=== PATIENT | female | born 1960 | race Caucasian/White ===

== ENCOUNTER → 2016-06-27 | Outpatient (CLI) | payer OTHER ==
--- NOTE | 2016-06-27 08:29 | US ---
EXAMINATION TYPE: US abdomen complete DATE OF EXAM: 06/27/2016 7:35 AM COMPARISON: NONE CLINICAL HISTORY: 55-year-old female R10.84 Generalized ABD Pain. TECHNIQUE: Multiple sonographic images of the abdomen were obtained. FINDINGS: Liver Length: 18.5 cm Gallbladder Wall: 0.3 cm CBD: 0.5 cm Spleen: 9.1 cm Right Kidney: 9.8 x 4.1 x 4.1 cm Left Kidney: 10.1 x 5.8 x 4.6 cm Pancreas: Within normal limits. Liver: Mildly enlarged. Slight heterogeneous echotexture could be on a technical basis or could repre sent underlying nonspecific hepatocellular disease. Gallbladder: Borderline distended. No wall thickening. There is a 2.2 cm mobile shadowing calculus w ithin. Evidence for sonographic Mcclain's sign: Yes CBD: Within normal limits Spleen: Within normal limits Right Kidney: no evidence of hydronephrosis Left Kidney: no evidence of hydronephrosis, limited evaluation due to overlying bowel Upper IVC: wnl Abd Aorta: Distal abdominal aorta is borderline ectatic at 2.5 cm transverse dimension. Additional scanning at the midabdomen, site of patient's lump. There is a nodular area of soft tissue that is suspected to extend through a tiny 5 mm defect of the anterior abdominal wall. The area of n odularity measures 1.2 cm. IMPRESSION: 1. Mild hepatomegaly. Slight heterogeneous appearance of the liver could be on a technical basis or c ould represent nonspecific hepatocellular disease. 2. Borderline gallbladder hydrops and cholelithiasis. Gallbladder distention could relate to fasting state. While sonographic Mcclain's sign is reported positive, the imaging features are equivocal for a cute cholecystitis as there is no abnormal wall thickening or pericholecystic fluid. Further clinical correlation recommended. If further imaging evaluation is desired, HIDA scan can be performed. 3. Suspect a tiny 1.2 cm fat-containing hernia through a 5 mm defect along the anterior mid abdominal wall at the site of patient's lump.
== END | disposition home or self-care (01) ==
LOC: RADUSWWP 06:57
PROVIDERS: ATTEND Internal Medicine
DX: K80.00 Calculus of gallbladder with acute cholecystitis without obstruction (principal); K82.1 Hydrops of gallbladder; R16.0 Hepatomegaly, not elsewhere classified; K82.8 Other specified diseases of gallbladder
CPT/HCPCS: 76700

== ENCOUNTER 2016-09-23 08:53 | Day surgery (SDC) | payer OTHER ==
[2016-09-21 11:05] VITALS: BMI 30.9
[~2016-09-23 08:53] MED LIST: LACTATED RINGERS 1,000 ML IV SCH; LIDOCAINE 1% 20 ML VIAL (10MG/ML) FOR IV START INTRADERMA PRN
[2016-09-23 10:31] VITALS: RESP 16; TEMP 98
[2016-09-23] MEDS ORDERED: LIDOCAINE 1% INJ 10MG/ML (20 ML MDV) ONE (11:10)
[2016-09-23] MEDS ORDERED: PROPOFOL 10 MG/ML 20 ML VIAL IV ONE (11:10)
--- NOTE | 2016-09-23 11:19 | P.PCN ---
Date of Procedure: 09/23/16 Preoperative Diagnosis: Postoperative Diagnosis: Procedure(s) Performed: BRIEF HISTORY: Patient is a 56-year-old, pleasant, white female, scheduled for an upper endoscopy with a CBD stent removal today. She developed post- laparoscopic cholecystectomy bile leak in July 2016 for which she underwent an ERCP with CBD stent placement.. PROCEDURE PERFORMED: Esophagogastroduodenoscopy with CBD stent removal. PREOPERATIVE DIAGNOSIS: History of bile leak status post ERCP with CBD stent placement in July 2016. IV sedation per anesthesia. PROCEDURE: After informed consent was obtained, the patient was brought into the endoscopy unit. IV sedation was administered by Anesthesia under continuous monitoring. Initially the Olympus GIF-140 video endoscope was inserted into the mouth. Esophagus intubated without any difficulty. It was gradually advanced into the stomach and duodenum and carefully examined. The bulb and the second part of the duodenum appeared normal. The scope at this time was withdrawn to the stomach, adequately insufflated with air, and upon careful examination, mucosa of the antrum, body, cardia and the fundus appeared normal. The scope was then withdrawn into the esophagus. Mall hiatal hernia noted. The GE junction was located at 39 cm from the incisors. There were 2 superficial erosions at the GE junction consistent with LA grade B reflux esophagitis. The rest of the esophagus appeared normal. At this time the scope was advanced into the duodenum and using the snare the CBD stent was removed without any difficulty and withdrawn along with the scope out of the mouth and the patient tolerated the procedure well. IMPRESSION: 1. CBD stent removal as described above. 2. Small hiatal hernia and LA grade B reflux esophagitis. RECOMMENDATIONS: The findings of this examination were discussed with the patient as well as a family. She isn't was advised to use [id number] H2 blockers as needed for GERD symptoms. Implants: Indications for Procedure: Operative Findings: Description of Procedure:
[2016-09-23 11:38] VITALS: PULSE 70
[2016-09-23 11:54] VITALS: BP 114/76
== END 2016-09-23 11:55 | disposition home or self-care (01) ==
LOC: ORWHC2ENDO 08:53
PROVIDERS: ATTEND Internal Medicine Gastroenterology
DX: Z45.89 Encounter for adjustment and management of other implanted devices (principal); K44.9 Diaphragmatic hernia without obstruction or gangrene; K21.0 Gastro-esophageal reflux disease with esophagitis; I10 Essential (primary) hypertension; J44.9 Chronic obstructive pulmonary disease, unspecified; Z86.718 Personal history of other venous thrombosis and embolism; Z79.899 Other long term (current) drug therapy; Z90.710 Acquired absence of both cervix and uterus
CPT/HCPCS: 43247; J2001; J2704; 44799

== ENCOUNTER 2018-02-25 00:39 | Inpatient (IN) | payer OTHER ==
[2018-02-25] MEDS ORDERED: methylPREDNISolone SOD SUCCI 125 MG/2 ML VIAL IV STA (00:58)
[2018-02-25] MEDS ORDERED: SODIUM CHLORIDE 0.9% 500 ML 500 ML IV STA (00:58)
[2018-02-25] MEDS ORDERED: IPRATROPIUM 0.5 MG/2.5 ML NEBU INHALATION STA (00:58)
[2018-02-25] MEDS ORDERED: ALBUTEROL NEBULIZED 2.5 MG/3 ML INHALATION STA (00:58)
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
[2018-02-25 01:42] LABS: Basophils % (A) 1 %; Eosinophils # (A) 0.1 k/uL (0-0.7); Eosinophils % (A) 2 %; HCT 44.9 % (34.0-46.0); HGB 14.1 gm/dL (11.4-16.0); Lymphocytes # (A) 0.6 k/uL (1.0-4.8); Lymphocytes % (A) 10 %; MCH 31.3 pg (25.0-35.0); MCHC 31.4 g/dL (31.0-37.0); MCV 99.5 fL (80.0-100.0); Macrocytosis Slight; Mean Platelet Volume 7.1; Monocytes # (A) 0.2 k/uL (0-1.0); Monocytes % (A) 4 %; Neutrophils # (A) 5.1 k/uL (1.3-7.7); Neutrophils % (A) 83 %; Platelet Count 242 k/uL (150-450); RBC 4.51 m/uL (3.80-5.40); RDW 14.2 % (11.5-15.5); WBC 6.2 k/uL (3.8-10.6)
[2018-02-25 01:58] LABS: ALT 31 U/L (9-52); AST 26 U/L (14-36); Albumin 4.3 g/dL (3.5-5.0); Alkaline Phosphatase 50 U/L (38-126); Anion Gap 7 mmol/L; Blood Urea Nitrogen 9 mg/dL (7-17); Calcium 9.6 mg/dL (8.4-10.2); Carbon Dioxide 27 mmol/L (22-30); Chloride 102 mmol/L (98-107); Glucose 116 mg/dL (74-99); Magnesium 1.9 mg/dL (1.6-2.3); Sodium 136 mmol/L (137-145); Total Bilirubin 0.5 mg/dL (0.2-1.3); Total Protein 7.3 g/dL (6.3-8.2)
[2018-02-25 02:02] LABS: D-Dimer 0.36 mg/L FEU (<0.60); INR 0.9 (<1.2); Partial Thromboplastin Time 23.1 sec (22.0-30.0); Prothrombin Time 9.5 sec (9.0-12.0)
[2018-02-25 02:08] LABS: Potassium 4.7 mmol/L (3.5-5.1)
[2018-02-25 02:16] LABS: Creatine Kinase MB 2.2 ng/mL (0.0-2.4)
[2018-02-25 02:17] LABS: Appearance,Urine Clear (Clear); Bilirubin,Urine Negative (Negative); Blood,Urine Small (Negative); Color,Urine Light Yellow; Glucose,Urine (UA) Negative (Negative); Ketones,Urine Negative (Negative); Leukocyte Esterase,Urine Negative (Negative); Nitrite,Urine Negative (Negative); PH, Urine 6.5 (5.0-8.0); Protein,Urine Negative (Negative); RBC,Urine <1 /hpf (0-5); Specific Gravity,Urine 1.002 (1.001-1.035); Urobilinogen,Urine <2.0 mg/dL (<2.0)
[2018-02-25 02:22] LABS: Troponin I 0.294 ng/mL (0.000-0.034)
[2018-02-25] MEDS ORDERED: ASPIRIN 325 MG TAB PO STA (02:24)
[2018-02-25] MEDS ORDERED: HEPARIN SODIUM,PORCINE 5,000 UNIT/ML 1 ML VIAL IV PRN (02:24)
[2018-02-25] MEDS ORDERED: HEPARIN SODIUM,PORCINE 5,000 UNIT/ML 1 ML VIAL IV ONE (02:24)
[2018-02-25] MEDS ORDERED: SODIUM CHLORIDE 0.9% 500 ML 500 ML IV ONE (02:27)
--- NOTE | 2018-02-25 02:30 | XR ---
EXAMINATION TYPE: XR chest 2V DATE OF EXAM: 02/25/2018 COMPARISON: 06/22/2012 HISTORY: COPD. Difficulty breathing TECHNIQUE: Frontal and lateral views of the chest are obtained. FINDINGS: Heart and mediastinum are normal. Lungs are clear of consolidation. There is no pleural ef fusion. Bony thorax is intact. IMPRESSION: Normal chest. No change.
[2018-02-25] MEDS ORDERED: NITROGLYCERIN SL TABS 0.4 MG TAB SUBLINGUAL PRN (02:50)
[2018-02-25] MEDS: HEPARIN SOD,PORK IN 0.45% NACL 25,000 UNIT in 0.45% NACL 1 500ML.BAG IV SCH (03:01)
[2018-02-25] MEDS: SODIUM CHLORIDE 0.9% 1,000 ML IV SCH ×2 (06:18→13:37)
[2018-02-25] MEDS: IPRATROPIUM-ALBUTEROL 3 ML NEB INHALATION PRN ×3 (07:27→20:22)
[2018-02-25] MEDS ORDERED: HEPARIN SODIUM,PORCINE 5,000 UNIT/ML 1 ML VIAL IV STA (08:56)
[2018-02-25] MEDS: methylPREDNISolone SOD SUCCI 125 MG/2 ML VIAL IV SCH ×3 (08:58→23:16)
[2018-02-25 09:17] LABS: Creatine Kinase MB 4.1 ng/mL (0.0-2.4)
[2018-02-25 09:28] LABS: Troponin I 0.589 ng/mL (0.000-0.034)
[2018-02-25 13:33] VITALS: BMI 28.6
[2018-02-25] MEDS: ATORVASTATIN 80 MG TAB PO SCH (13:47)
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
[2018-02-25 15:37] LABS: Creatine Kinase MB 4.3 ng/mL (0.0-2.4)
[2018-02-25 15:39] LABS: Troponin I 0.418 ng/mL (0.000-0.034)
[2018-02-25] MEDS: NITROGLYCERIN OINT 1 INCH/GM PACKET TOPICAL SCH ×2 (16:30→23:15)
--- NOTE | 2018-02-25 17:53 | CONS ---
CONSULTATION This is a 57-year-old lady with a history of hypertension, smoking, who is also status post cholecystectomy. She smokes at least about half to 1 pack daily. Drinks alcohol about 4-5 beers every week. This lady has been having increasing shortness of breath and wheezing and came into the hospital. Also complained of some pounding in the chest and symptoms of chest tightness and pressure as well. After arrival, her initial troponin was mildly elevated at 0.2 and went up to 0.5. Her symptoms have resolved. She is resting comfortably after receiving some steroids and breathing treatment, she is actually feeling well. At the time of my evaluation, she is more comfortable, but earlier she had pounding in the chest and tightness pressure as well as shortness of breath. PAST MEDICAL HISTORY: 1. Hypertension. 2. Smoking and chronic obstructive pulmonary disease. 3. History of a gallbladder surgery in the past. MEDICATIONS: She takes lisinopril, amlodipine, and breathing treatments. PHYSICAL EXAMINATION: On examination, blood pressure is 118/70, pulse rate is about 90 per minute and regular. HEENT unremarkable. Fundus was not examined by me. Neck is supple. There is no JVD. I do not hear a carotid bruit. Heart exam reveals S1, S2 heard normally. No significant rub, murmur or gallop. Lungs reveal scattered expiratory rhonchi. Abdomen is soft, nontender. Lower extremity with normal pulses. No edema. Central nervous system is normal. EKG revealed a sinus tachycardia. No acute changes. IMPRESSION: 1. Exacerbation of chronic obstructive pulmonary disease. 2. Probable non ST elevation Myocardial infarction which could be oxygen mismatch but primary coronary obstruction cannot be totally excluded in a patient with significant risk factors. 3. History of hypertension. RECOMMENDATIONS: I am recommending that we will continue the heparin drip. We will reduce the aspirin to 81 mg daily. Add nitro paste and a beta patel in the form of metoprolol tartrate 25 mg b.i.d., perform echocardiogram tomorrow. We will do a troponin at 6:00 pm and 6:00 am today. I advised the patient that she will benefit from a coronary angiography, especially if the troponin shows an upward trend. Rationale, risks, benefits, options were explained. She understands all details and wishes to proceed with the procedure. I will see her in the morning and then make a final definitive decision. Thank you very much for the consult. ELO / CASEY: [id number] /
[2018-02-25] MEDS: METOPROLOL TARTRATE 25 MG TAB PO SCH (20:38)
[2018-02-26] MEDS: HEPARIN SOD,PORK IN 0.45% NACL 25,000 UNIT in 0.45% NACL 1 500ML.BAG IV SCH ×2 (03:09→21:02)
[2018-02-26] MEDS: ACETAMINOPHEN TAB 325 MG TAB PO PRN (03:09)
[2018-02-26] MEDS: SODIUM CHLORIDE 0.9% 1,000 ML IV SCH ×2 (05:16→19:01)
[2018-02-26] MEDS: NITROGLYCERIN OINT 1 INCH/GM PACKET TOPICAL SCH ×3 (07:56→23:50)
[2018-02-26] MEDS: amLODIPine 10 MG TAB PO SCH (07:58)
[2018-02-26] MEDS: ATORVASTATIN 80 MG TAB PO SCH (07:58)
[2018-02-26] MEDS: methylPREDNISolone SOD SUCCI 125 MG/2 ML VIAL IV SCH ×3 (07:58→23:51)
[2018-02-26] MEDS: LISINOPRIL 20 MG TAB PO SCH (07:58)
[2018-02-26] MEDS: METOPROLOL TARTRATE 25 MG TAB PO SCH ×2 (07:58→20:44)
[2018-02-26] MEDS: ASPIRIN 81 MG PO SCH (07:58)
[2018-02-26] MEDS: IPRATROPIUM-ALBUTEROL 3 ML NEB INHALATION PRN ×4 (08:09→19:10)
[2018-02-26 08:30] LABS: Basophils % (A) 0 %; Eosinophils # (A) 0.1 k/uL (0-0.7); Eosinophils % (A) 1 %; HCT 39.2 % (34.0-46.0); HGB 12.8 gm/dL (11.4-16.0); Lymphocytes # (A) 0.6 k/uL (1.0-4.8); Lymphocytes % (A) 7 %; MCH 31.6 pg (25.0-35.0); MCHC 32.5 g/dL (31.0-37.0); MCV 97.1 fL (80.0-100.0); Mean Platelet Volume 8.5; Monocytes # (A) 0.3 k/uL (0-1.0); Monocytes % (A) 3 %; Neutrophils # (A) 7.8 k/uL (1.3-7.7); Neutrophils % (A) 90 %; Platelet Count 224 k/uL (150-450); RBC 4.04 m/uL (3.80-5.40); RDW 14.2 % (11.5-15.5); WBC 8.7 k/uL (3.8-10.6)
[2018-02-26 08:46] LABS: Anion Gap 8 mmol/L; Blood Urea Nitrogen 17 mg/dL (7-17); Calcium 9.8 mg/dL (8.4-10.2); Carbon Dioxide 21 mmol/L (22-30); Chloride 110 mmol/L (98-107); Cholesterol 145 mg/dL (<200); Glucose 132 mg/dL (74-99); HDL Cholesterol 39 mg/dL (40-60); LDL Cholesterol,Calculated 89 mg/dL (0-99); Potassium 4.5 mmol/L (3.5-5.1); Sodium 139 mmol/L (137-145); Triglycerides 83 mg/dL (<150)
[2018-02-26] MEDS ORDERED: ASPIRIN 325 MG TAB PO SCH (09:00)
--- NOTE | 2018-02-26 15:04 | P.PN ---
Subjective Progress Note Date: 02/26/18 Principal diagnosis: COPD exacerbation and NSTEMI Ms. Mclaughlin is a 57-year-old female with a past medical history of COPD, hypertension coming in with a chief complaint of worsening cough and dyspnea. The patient was also complaining of chest pain in the middle of the chest chest was radiating to both her shoulder blades. She states that whenever her cough is worse, she tends to have this chest pain that radiates to her shoulders. Patient also complains of cough, productive in nature, greenish to yellowish in color. Patient has extensive smoking history from the age of 13 almost half to 1 pack per day. Patient denies having any sick contacts. Patient denies having any diaphoresis nausea or vomiting. Patient denies having any lower extremity swelling. Patient states that she felt like a fish out of the water. Patient denies having any fevers chills or rigors. In the ER patient had blood work done which showed elevation in troponins and a chest x-ray that was showing emphysematous changes. On 02/26/18 - patient is sitting up in the bed with his to be no acute distress. No acute overnight events reported by nursing staff. Patient states that she still has been wheezing and having difficulty in breathing. Patient denies having any fevers chills or rigors. No chest pain or palpitations.No nausea vomiting or diarrhea. No dysuria or hematuria. Active Medications Acetaminophen (Tylenol Tab) 650 mg PO Q6HR PRN PRN Reason: Fever and/ or Pain Last Admin: 02/26/18 03:09 Dose: 650 mg Albuterol/Ipratropium (Duoneb 0.5 Mg-3 Mg/3 Ml Soln) 3 ml INHALATION RT-QID PRN PRN Reason: Shortness Of Breath Or Wheezing Last Admin: 02/26/18 11:52 Dose: 3 ml Amlodipine Besylate (Norvasc) 10 mg PO DAILY [facility] Last Admin: 02/26/18 07:58 Dose: 10 mg Aspirin (Aspirin) 81 mg PO DAILY [facility] Last Admin: 02/26/18 07:58 Dose: 81 mg Atorvastatin Calcium (Lipitor) 80 mg PO DAILY [facility] Last Admin: 02/26/18 07:58 Dose: 80 mg Heparin Sodium (Porcine) (Heparin) 0 unit IV PER PROTOCOL PRN; Protocol PRN Reason: Low PTT Heparin Sodium/Sodium Chloride (25,000 unit/ Sodium Chloride) 500 mls @ 18.5 mls/hr IV .Q24H [facility]; Protocol Last Titration: 02/26/18 11:17 Dose: 17 units/kg/hr, 26.21 mls/hr Sodium Chloride (Saline 0.9%) 1,000 mls @ 75 mls/hr IV .[id number] [facility] Last Admin: 02/26/18 05:16 Dose: Not Given Lisinopril (Zestril) 20 mg PO DAILY [facility] Last Admin: 02/26/18 07:58 Dose: 20 mg Methylprednisolone Sodium Succinate (Solu-Medrol) 60 mg IV Q8HR [facility] Last Admin: 02/26/18 07:58 Dose: 60 mg Metoprolol Tartrate (Lopressor) 25 mg PO BID [facility] Last Admin: 02/26/18 07:58 Dose: 25 mg Nitroglycerin (Nitrostat) 0.4 mg SUBLINGUAL Q5M PRN PRN Reason: Chest Pain Nitroglycerin (Nitro-Bid Oint) 0.5 inch TOPICAL Q8HR [facility] Last Admin: 02/26/18 07:56 Dose: Not Given Objective - Vital Signs Vital signs: Vital Signs Temp 98 F 02/26/18 11:15 Pulse 70 02/26/18 12:04 Resp 20 02/26/18 12:00 BP 109/61 02/26/18 11:15 Pulse Ox 93 L 02/26/18 11:15 Intake & Output 02/25/18 02/26/18 02/26/18 18:59 06:59 18:59 Intake Total 419.683 6842.925 188.124 Balance 179.532 1005.925 188.124 Weight 74.2 kg Intake: Intake, IV Titration 081.958 1564.925 188.124 Amount Heparin Sod,Pork in 0.45% 110.075 389.925 188.124 NaCl 25,000 unit In 0.45 % NaCl 1 500ml.bag @ 12 UNITS/KG/HR 18.5 mls/hr IV .Q24H [facility] Rx#: [id number] Sodium Chloride 0.9% 1, 1050 000 ml @ 75 mls/hr IV . [id number] [facility] Rx#:[id number] Oral 240 240 Other: Voiding Method Toilet Toilet Diaper Diaper # Voids 5 - Exam GEN. APPEARANCE: alert, in no apparent distress HEAD EXAM: atraumatic, normocephalic, normal inspection EYE EXAM: no pallor. No icterus. NECK EXAM: no JVD. No thyromegaly. No carotid artery bruit. RESPIRATORY EXAM: diminished breath sounds in all lung lara. Bilateral wheezing. CARDIOVASCULAR EXAM: S1 and S2 heard GI/ABDOMINAL EXAM: Soft nontender. Bowel sounds positive. EXTREMITIES EXAM: no peripheral edema. NEUROLOGICAL EXAM: alert, oriented X3, no focal neurological deficits. PSYCHIATRIC EXAM: normal affect, normal mood SKIN EXAM: warm, dry, intact, normal color. Absent: rash - Labs CBC & Chem 7: 02/26/18 07:09 02/26/18 07:09 Labs: Abnormal Lab Results - Last 24 Hours (Table) 02/25/18 02/25/18 02/25/18 Range/Units 14:42 14:42 20:00 Neutrophils # (1.3-7.7) k/uL Lymphocytes # (1.0-4.8) k/uL APTT 53.6 H (22.0-30.0) sec Chloride (98-107) mmol/L Carbon Dioxide (22-30) mmol/L Glucose (74-99) mg/dL CK-MB (CK-2) 4.3 H (0.0-2.4) ng/mL Troponin I 0.418 H* 0.363 H* (0.000-0.034) ng/mL HDL Cholesterol (40-60) mg/dL 02/26/18 02/26/18 02/26/18 Range/Units 07:09 07:09 07:09 Neutrophils # 7.8 H (1.3-7.7) k/uL Lymphocytes # 0.6 L (1.0-4.8) k/uL APTT 44.5 H (22.0-30.0) sec Chloride 110 H (98-107) mmol/L Carbon Dioxide 21 L (22-30) mmol/L Glucose 132 H (74-99) mg/dL CK-MB (CK-2) (0.0-2.4) ng/mL Troponin I (0.000-0.034) ng/mL HDL Cholesterol 39 L (40-60) mg/dL 12/10/18 Range/Units 10:50 Neutrophils # (1.3-7.7) k/uL Lymphocytes # (1.0-4.8) k/uL APTT (22.0-30.0) sec Chloride (98-107) mmol/L Carbon Dioxide (22-30) mmol/L Glucose (74-99) mg/dL CK-MB (CK-2) (0.0-2.4) ng/mL Troponin I 0.226 H* (0.000-0.034) ng/mL HDL Cholesterol (40-60) mg/dL Microbiology - Last 24 Hours (Table) 02/25/18 01:19 Blood Culture - Preliminary Blood No Growth after 24 hours Assessment and Plan Assessment: ASSESSMENT Acute exacerbation of COPD Non-ST elevation [place] Essential hypertension Nicotine dependence Plan: Patient is still actively wheezing. We'll continue with systemic steroids and breathing treatments. Cardiology evaluated the patient and would like her breathing to be optimized before taking her for cardiac cath. We'll continue with heparin drip for now. Continue with serial troponins and EKGs. Further recommendations to follow depending on the progress of the patient.
--- NOTE | 2018-02-26 16:15 | PN ---
PROGRESS NOTE Mrs. Manuela Mclaughlin was admitted with exacerbation of COPD. She has history of smoking. Her troponin profile has shown improvement. Although there is abnormality of the troponin elevation, I am not recommending immediate cardiac cath. Instead I will seek a pulmonary evaluation and also assess her LV function by echocardiogram and based on this I will make further recommendations. Her vitals are stable. Her breathing is modestly improved. S1-S2 heard normally. Bilateral scattered rhonchi are audible. Abdomen and lower extremity exam is unchanged. I will seek a pulmonary consult and continue current medical regimen and obtain echocardiogram. We will switch her from IV heparin to subcu heparin tomorrow. MMODL / IJN: [id number] /
--- NOTE | 2018-02-27 06:25 | ECHOF ---
Referral Reason:CP MEASUREMENTS -------- HEIGHT: 160.0 cm WEIGHT: 74.4 kg BP: 108/60 RVIDd: 3.4 cm (< 3.3) IVSd: 1.0 cm (0.6 - 1.1) LVIDd: 4.2 cm (3.9 - 5.3) LVPWd: 0.9 cm (0.6 - 1.1) IVSs: 1.5 cm LVIDs: 2.5 cm LVPWs: 1.3 cm LA Diam: 3.5 cm (2.7 - 3.8) Ao Diam: 3.0 cm (2.0 - 3.7) AV Cusp: 1.9 cm (1.5 - 2.6) LA Diam: 3.2 cm (2.7 - 3.8) MV EXCURSION: 26.030 mm (> 18.000) MV EF SLOPE: 194 mm/s (70 - 150) EPSS: 0.6 cm MV E Joaquin: 0.82 m/s MV DecT: 215 ms MV A Joaquin: 0.95 m/s MV E/A Ratio: 0.86 AR PHT: 474 ms RAP: 5.00 mmHg RVSP: 22.27 mmHg FINDINGS -------- Sinus rhythm. This was a technically adequate study. LV size, wall thickness and systolic function are normal, with an EF greater than 55%. The left batsheva tricular size is normal. The right ventricle is normal in size. The left atrial size is normal. The right atrial size is normal. There is mild aortic valve sclerosis. There is mild aortic regurgitation. Mild mitral annular calcification present. Mild mitral regurgitation is present. Mild tricuspid regurgitation present. There is no evidence of pulmonary hypertension. The right v entricular systolic pressure, as measured by Doppler, is 22.27mmHg. Trace/mild (physiologic) pulmonic regurgitation. The aortic root size is normal. There is no pericardial effusion. CONCLUSIONS -------- 1. Sinus rhythm. 2. LV size, wall thickness and systolic function are normal, with an EF greater than 55%. 3. The left ventricular size is normal. 4. The left atrial size is normal. 5. There is mild aortic valve sclerosis. 6. There is mild aortic regurgitation. 7. Mild mitral annular calcification present. 8. Mild mitral regurgitation is present. 9. Mild tricuspid regurgitation present. 10. There is no evidence of pulmonary hypertension. 11. Trace/mild (physiologic) pulmonic regurgitation. 12. The aortic root size is normal. 13. There is no pericardial effusion. ASSOCIATE: Ginette Campbell RDCS
[2018-02-27 06:42] LABS: Basophils % (A) 0 %; Eosinophils # (A) 0.1 k/uL (0-0.7); Eosinophils % (A) 1 %; HCT 37.6 % (34.0-46.0); HGB 12.1 gm/dL (11.4-16.0); Lymphocytes # (A) 0.7 k/uL (1.0-4.8); Lymphocytes % (A) 9 %; MCH 31.9 pg (25.0-35.0); MCHC 32.1 g/dL (31.0-37.0); MCV 99.3 fL (80.0-100.0); Macrocytosis Slight; Mean Platelet Volume 7.1; Monocytes # (A) 0.2 k/uL (0-1.0); Monocytes % (A) 2 %; Neutrophils # (A) 6.5 k/uL (1.3-7.7); Neutrophils % (A) 88 %; Platelet Count 236 k/uL (150-450); RBC 3.78 m/uL (3.80-5.40); RDW 14.4 % (11.5-15.5); WBC 7.5 k/uL (3.8-10.6)
[2018-02-27 06:53] LABS: Anion Gap 8 mmol/L; Blood Urea Nitrogen 21 mg/dL (7-17); Calcium 9.3 mg/dL (8.4-10.2); Carbon Dioxide 19 mmol/L (22-30); Chloride 111 mmol/L (98-107); Glucose 130 mg/dL (74-99); Sodium 138 mmol/L (137-145)
[2018-02-27 06:57] LABS: Potassium 4.4 mmol/L (3.5-5.1)
[2018-02-27] MEDS: methylPREDNISolone SOD SUCCI 125 MG/2 ML VIAL IV SCH ×3 (08:21→23:24)
[2018-02-27] MEDS: NITROGLYCERIN OINT 1 INCH/GM PACKET TOPICAL SCH (08:22)
[2018-02-27] MEDS: ACETAMINOPHEN TAB 325 MG TAB PO PRN ×2 (08:28→20:25)
[2018-02-27] MEDS: IPRATROPIUM-ALBUTEROL 3 ML NEB INHALATION PRN ×2 (08:29→11:47)
[2018-02-27] MEDS: LISINOPRIL 20 MG TAB PO SCH (09:33)
[2018-02-27] MEDS: ASPIRIN 81 MG PO SCH (09:33)
[2018-02-27] MEDS: METOPROLOL TARTRATE 25 MG TAB PO SCH ×2 (09:33→20:25)
[2018-02-27] MEDS: ATORVASTATIN 80 MG TAB PO SCH (09:33)
[2018-02-27] MEDS: amLODIPine 10 MG TAB PO SCH (09:33)
--- NOTE | 2018-02-27 13:10 | PN ---
PROGRESS NOTE Mrs. Mclaughlin is doing better today. Her troponin profile represents possible non- ST elevation [place] because of oxygen mismatch. Her breathing is still suboptimal. She has expiratory wheezing. I am awaiting pulmonary evaluation. I am going to switch her heparin from IV to subcu, increase activity. Vital signs are stable. S1, S2 heard normally. Lungs reveal bilateral scattered rhonchi. Abdomen and lower extremity exam unchanged. Plan is to treat her medically from a cardiac standpoint, but after discharge I will see her in the office and consider stress testing to assess her coronary status. Discussed my thoughts in detail with the patient. MMODL / IJN: [id number] /
[2018-02-27] MEDS ORDERED: IPRATROPIUM-ALBUTEROL 3 ML NEB INHALATION PRN (14:02)
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
[2018-02-27] MEDS ORDERED: HYDROcodone/APAP 5-325MG 1 EACH TAB PO STA (14:21)
[2018-02-27] MEDS: LEVOFLOXACIN 750 MG TAB PO SCH (15:17)
[2018-02-27] MEDS: IPRATROPIUM-ALBUTEROL 3 ML NEB INHALATION SCH ×2 (16:11→20:42)
[2018-02-27] MEDS: SODIUM CHLORIDE 0.9% 1,000 ML IV SCH (18:58)
[2018-02-27] MEDS: HEPARIN SODIUM,PORCINE 5,000 UNIT/ML 1 ML VIAL SQ SCH (20:25)
[2018-02-27] MEDS: SYMBICORT 160-4.5 MCG INHALER INHALATION SCH (20:44)
[2018-02-28] MEDS: IPRATROPIUM-ALBUTEROL 3 ML NEB INHALATION SCH ×4 (07:53→20:26)
[2018-02-28] MEDS: SYMBICORT 160-4.5 MCG INHALER INHALATION SCH ×2 (07:53→20:27)
[2018-02-28] MEDS: HEPARIN SODIUM,PORCINE 5,000 UNIT/ML 1 ML VIAL SQ SCH ×2 (09:29→20:00)
[2018-02-28] MEDS: methylPREDNISolone SOD SUCCI 125 MG/2 ML VIAL IV SCH ×3 (09:29→22:55)
[2018-02-28] MEDS: LISINOPRIL 20 MG TAB PO SCH (09:30)
[2018-02-28] MEDS: ASPIRIN 81 MG PO SCH (09:31)
[2018-02-28] MEDS: LEVOFLOXACIN 750 MG TAB PO SCH (09:31)
[2018-02-28] MEDS: METOPROLOL TARTRATE 25 MG TAB PO SCH ×2 (09:31→20:00)
[2018-02-28] MEDS: amLODIPine 10 MG TAB PO SCH (09:31)
[2018-02-28] MEDS: ATORVASTATIN 80 MG TAB PO SCH (09:31)
[2018-02-28 12:24] LABS: Glucose,Whole Blood 91 mg/dL (75-99)
--- NOTE | 2018-02-28 12:56 | CDI ---
Documentation Clarification Form Date: 02/28/2018 12:45:38 PM From: Blanquita Lozada CCS, CCDS Admit Date: 02/25/2018 2:52:00 AM Patient Name: Manuela Mclaughlin Visit Number: [id number] Discharge Date: ATTENTION: The Clinical Documentation Specialists (CDI) and [facility] Coding Staff appreciate your assistance in clarifying documentation. Please respond to the clarification below the line at the bottom and electronically sign. The CDI & [facility] Coding staff will review the response and follow-up if needed. Please note: Queries are made part of the Legal Health Record. If you have any questions, please contact the author of this message via ITS. Dr. Charles Gill: Per the 02/27 cardiology progress note: "Mrs. Mclaughlin is doing better today.Her troponin profile represents possible non-ST elevation [place] because of oxygen mismatch." Patient History/Risk Factors: COPD, Hypertension, DVT, Osteopenia. Current smoker. Clinical Indicators: Presented to ER with chest pain & difficulty in breathing. Troponin: 0.294^^, 0.589^^, 0.418^^, 0.363^^ EKG Results: R 96 nsr, nonspecific ST abnormality, abnormal EKG Treatment: Telemetry, Albuterol INH, Atrovent INH, IV Solumedrol, IV fluid bolus x2, IV Heparin (changed to subcu), Nitro sl. In order to capture the severity of condition and necessary documentation specificity, please clarify: Type of Infarction: NSTEMI Type I: primary coronary event Type II: Due to a supply & demand mismatch such as coronary spasm, coronary embolism, arrhythmia, anemia or hypotension Unable to determine Other, please specify (Last Revision: December 2016) Type II NSTEMI MTDD
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
[2018-02-28 17:12] LABS: Glucose,Whole Blood 112 mg/dL (75-99)
[2018-02-28] MEDS: ACETAMINOPHEN TAB 325 MG TAB PO PRN (20:00)
[2018-02-28 20:51] LABS: Glucose,Whole Blood 118 mg/dL (75-99)
--- NOTE | 2018-02-28 21:17 | PN ---
PROGRESS NOTE HISTORY: This lady has history of elevated troponins, which is probably a type 2 myocardial infarction. She is, however, resting comfortably without symptoms. Echo revealed good systolic function. Her breathing is easier. She has been seen by Pulmonology. The plan is to continue current medical regimen and her breath sounds have improved a lot. I have advised regarding smoking cessation. PHYSICAL EXAMINATION: Vital signs are stable. S1-S2 heard normally. Lungs reveal improved air entry. Abdomen and lower extremity exams unchanged. PLAN: Continue current medications and increase activity. Possible discharge. I will see her in the office in 3 weeks or so. MMODL / IJN: [id number] /
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
[2018-03-01 06:04] LABS: Glucose,Whole Blood 140 mg/dL (75-99)
[2018-03-01] MEDS: IPRATROPIUM-ALBUTEROL 3 ML NEB INHALATION SCH ×3 (08:26→16:22)
[2018-03-01] MEDS: SYMBICORT 160-4.5 MCG INHALER INHALATION SCH (08:26)
[2018-03-01 08:41] VITALS: RESP 17; TEMP 98
[2018-03-01] MEDS: methylPREDNISolone SOD SUCCI 125 MG/2 ML VIAL IV SCH ×2 (08:41→16:15)
[2018-03-01] MEDS: METOPROLOL TARTRATE 25 MG TAB PO SCH (08:42)
[2018-03-01] MEDS: ASPIRIN 81 MG PO SCH (08:42)
[2018-03-01] MEDS: ATORVASTATIN 80 MG TAB PO SCH (08:42)
[2018-03-01] MEDS: amLODIPine 10 MG TAB PO SCH (08:42)
[2018-03-01] MEDS: LEVOFLOXACIN 750 MG TAB PO SCH (08:42)
[2018-03-01] MEDS: LISINOPRIL 20 MG TAB PO SCH (08:42)
[2018-03-01] MEDS: HEPARIN SODIUM,PORCINE 5,000 UNIT/ML 1 ML VIAL SQ SCH (08:42)
[2018-03-01] MEDS: ACETAMINOPHEN TAB 325 MG TAB PO PRN ×2 (10:00→16:13)
[2018-03-01 11:55] VITALS: BP 115/65
[2018-03-01 11:57] LABS: Glucose,Whole Blood 107 mg/dL (75-99)
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
[2018-03-01 16:37] VITALS: PULSE 75
--- NOTE | 2018-03-01 18:44 | PN ---
PROGRESS NOTE Mrs. Mclaughlin is admitted to the hospital with exacerbation of bronchial asthma, acute bronchitis, and also had a mild troponin elevation. She is resting comfortably. Denies any chest pain. Her breathing is easier. Vital signs are stable. S1-S2 heard normally. Short systolic murmur noted. Lungs reveal improved air entry. She still has some scattered rhonchi but overall better. Plan is to continue her respiratory management, increase activity and upon discharge I will see her in a couple of weeks. She has been counseled regarding the need to quit smoking. MMODL / IJN: [id number] /
--- NOTE | 2018-03-01 22:57 | DS ---
DISCHARGE SUMMARY DATE OF SERVICE: 03/01/2018. FINAL DIAGNOSES: 1. Chronic obstructive pulmonary disease exacerbation. 2. Acute non ST elevation myocardial infarction. 3. Hypertension. 4. Nicotine dependence. 5. Depression. 6. History of bilateral pneumothorax. DISCHARGE CONDITION: The patient is being discharged in stable condition with guarded prognosis. She was cleared by Pulmonary as well as Cardiology. HISTORY OF PRESENT ILLNESS: This 57-year-old woman with a past medical history of multiple medical problems was admitted with COPD exacerbation as well as acute non-ST elevation myocardial infarction. Cardiology and Pulmonology saw the patient and recommended outpatient followup. The patient improved significantly. On exam vital signs are stable. Cardiovascular, S1 and S2. Abdomen is soft. Nervous system, no focal deficits. LABS: Troponins elevated up to 3.363. The patient will be discharged in stable condition with guarded prognosis. Total time taken is 35 minutes. DISCHARGE INSTRUCTIONS: 1. Diet is cardiac diet. 2. Activity is limited. FOLLOWUP: 1. Follow up with Dr. Dash in 2 to 3 days. 2. Follow up with Dr. Banks and Dr. Katelynn Gill as recommended. MEDICATIONS: 1. Norvasc 10 mg daily. 2. Zestril 20 mg daily. 3. Tylenol p.r.n. 4. Aspirin 81 mg. 5. Lipitor 80 mg daily. 6. Symbicort 2 puffs b.i.d. 7. DuoNeb q.i.d. and p.r.n. 8. Levaquin 750 p.o. daily for 3 more days. 9. Lopressor 25 mg p.o. b.i.d. 10.Nitrostat p.r.n. 11.Prednisone taper 40 mg daily for 3 days, 30 for 3 days, 20 for 3 days, 10 for 3 days. Please refer to Cardiology and Pulmonology notes for further information. MMODL / IJN: [id number] /
== END 2018-03-01 18:22 | disposition home or self-care (01) | DRG 190 ==
LOC: EC 00:39 → 3SCARD 02:52
PROVIDERS: ADMIT Hospitalist; ATTEND Hospitalist
DX: J44.1 Chronic obstructive pulmonary disease with (acute) exacerbation (principal); I21.A1 Myocardial infarction type 2; J44.0 Chronic obstructive pulmonary disease with (acute) lower respiratory infection; F17.210 Nicotine dependence, cigarettes, uncomplicated; F32.9 Major depressive disorder, single episode, unspecified; I10 Essential (primary) hypertension; J20.9 Acute bronchitis, unspecified; M85.80 Other specified disorders of bone density and structure, unspecified site; I08.1 Rheumatic disorders of both mitral and tricuspid valves; R32 Unspecified urinary incontinence; Z77.120 Contact with and (suspected) exposure to mold (toxic); Z79.899 Other long term (current) drug therapy; Z86.718 Personal history of other venous thrombosis and embolism; Z90.49 Acquired absence of other specified parts of digestive tract; Z90.710 Acquired absence of both cervix and uterus; Z91.048 Other nonmedicinal substance allergy status; Z87.01 Personal history of pneumonia (recurrent); Z80.9 Family history of malignant neoplasm, unspecified
CPT/HCPCS: 36415; 71046; 80048; 80053; 80061; 81001; 82550; 82553; 83605; 83735; 83880; 84484; 85025; 85379; 85610; 85730; 87040; 93005; 93306; 94640; 94760; 96365; 96366; 96375; 96376; 99291

== ENCOUNTER → 2020-07-23 | Outpatient (CLI) | payer OTHER ==
[2020-07-24 03:54] LABS: African American GFR (CKD) 93.5 (60.0-200.0); Anion Gap 8.1 mmol/L (4.00-12.00); Calcium 9.7 mg/dL (8.7-10.3); Carbon Dioxide 26.9 mmol/L (21.6-31.8); Non-African American GFR(CKD) 80.7 (60.0-200.0); Potassium 4.6 mmol/L (3.5-5.5)
== END | disposition home or self-care (01) ==
LOC: LABWHC1 11:21
PROVIDERS: ATTEND Internal Medicine Interventional Cardiology
DX: I11.0 Hypertensive heart disease with heart failure (principal); I50.9 Heart failure, unspecified
CPT/HCPCS: 36415; 80048

== ENCOUNTER → 2020-09-03 | Outpatient (CLI) | payer OTHER ==
--- NOTE | 2020-09-04 11:43 | MM ---
Reason for exam: screening (asymptomatic). Last mammogram was performed 6 years and 1 month ago. History: Patient is postmenopausal. Benign stereotactic core biopsy of the left breast, March 29, 2002. Core biopsy of the left breast. Took hormonal contraceptives for 3 years. Physical Findings: A clinical breast exam by your physician is recommended on an annual basis and results should be correlated with mammographic findings. MG Screening Mammo w CAD Bilateral CC and MLO view(s) were taken. Prior study comparison: July 22, 2014, left breast MG diagnostic mammo LT w CAD. February 12, 2014, bilateral MG work up mamm w CAD BILAT. Previous mammotome biopsy in the left breast. There is chronic nodularity in the left breast. No significant changes when compared with prior studies. ASSESSMENT: Benign, BI-RAD 2 RECOMMENDATION: Routine screening mammogram of both breasts in 1 year.
== END | disposition home or self-care (01) ==
LOC: RADMAMWWP 09:06
PROVIDERS: ATTEND Internal Medicine
DX: Z12.31 Encounter for screening mammogram for malignant neoplasm of breast (principal); Z78.0 Asymptomatic menopausal state
CPT/HCPCS: 77067

== ENCOUNTER 2022-08-19 08:53 | Emergency (ER) | payer OTHER ==
[2022-08-19 09:00] VITALS: TEMP 98
[2022-08-19] MEDS ORDERED: MORPHINE SULFATE 4 MG/ML SYRINGE IM STA ×2 (09:14→10:58)
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
--- NOTE | 2022-08-19 09:42 | XR ---
EXAMINATION TYPE: XR elbow limited LT, XR hand limited LT, XR wrist limited LT, XR forearm LT DATE OF EXAM: 08/19/2022 CLINICAL HISTORY: Fall injury with pain. TECHNIQUE: Two views of the left elbow, forearm, wrist, and hand are obtained. COMPARISON: None. FINDINGS: No acute fracture or dislocation in the left elbow. No abnormal fat pad signs are seen. Ov erlying soft tissue is unremarkable. There is acute comminuted displaced intra-articular fracture through the distal radial meta-epiphysis . Distal fracture fragment is impacted along with radially and volarly displaced. There is additional acute avulsion type fracture from the ulnar styloid with 5 mm fracture fragment. Focal mild to moder ate soft tissue swelling along the ulnar dorsal aspect of the distal ulna is seen. Incidental moderate narrowing at the base of first metacarpal and mild to moderate triscaphe joint sp christopher loss. No additional acute fracture or dislocation in the left wrist or hand. IMPRESSION: There is acute avulsion type fracture from the ulnar styloid and acute comminuted displa van intra-articular fracture through the distal radial meta-epiphysis.
[2022-08-19] MEDS ORDERED: LIDOCAINE 2% INJ 20 MG/ML (20 ML MDV) SQ STA (09:51)
[2022-08-19] MEDS ORDERED: ACET/COD 300 MG/30 MG STARTER PACK 6 TAB BTL PO STA (10:58)
--- NOTE | 2022-08-19 11:16 | XR ---
EXAMINATION TYPE: XR wrist limited LT DATE OF EXAM: 08/19/2022 CLINICAL HISTORY: Post reduction of left wrist fracture TECHNIQUE: Frontal and lateral images of the left wrist are obtained. COMPARISON: Prior left wrist x-ray earlier today FINDINGS: New overlying splint material is seen which is noted to lower radiographic sensitivity. Acute comminuted intra-articular fracture through the distal radial metaepiphysis show some improveme nt in volar angulation after reduction and splinting. Slight radial and volar step off of the distal fracture fragments remains present similar to prior. Avulsion type fracture from the ulnar styloid is redemonstrated. IMPRESSION: As above.
[2022-08-19 12:01] VITALS: BP 135/72; PULSE 67; RESP 16
== END 2022-08-19 12:01 | disposition home or self-care (01) ==
LOC: EC 08:53
DX: S52.572A Other intraarticular fracture of lower end of left radius, initial encounter for closed fracture (principal); S52.612A Displaced fracture of left ulna styloid process, initial encounter for closed fracture; I10 Essential (primary) hypertension; J44.9 Chronic obstructive pulmonary disease, unspecified; F32.A Depression, unspecified; F12.90 Cannabis use, unspecified, uncomplicated; F17.200 Nicotine dependence, unspecified, uncomplicated; Z79.899 Other long term (current) drug therapy; Z88.8 Allergy status to other drugs, medicaments and biological substances; W01.0XXA Fall on same level from slipping, tripping and stumbling without subsequent striking against object, initial encounter
CPT/HCPCS: 73070; 73090; 73100; 73120; 25565; 99283; 96372 ×2; J2001; J2270

== ENCOUNTER → 2024-01-11 | Outpatient (CLI) | payer OTHER ==
[~2024-01-11] MED LIST changes: -LACTATED RINGERS 1,000 ML IV SCH; -LIDOCAINE 1% 20 ML VIAL (10MG/ML) FOR IV START INTRADERMA PRN; +REGADENOSON 0.4 MG/5 ML SYRINGE IV PRN
--- NOTE | 2024-01-11 11:06 | CA ---
Lexiscan Nuclear Stress Test Report Name: Manuela Mclaughlin Exam Date: 01/11/2024 09:53 Exam Location: [facility] Ht (in): 63 Wt (lb): 170 BSA: 1.80 Ordering Phys: Charles Reyes MD Referring Phys: CHARLES REYES,, Technologist: Sp Mas Age: 63 Gender: F : 1960 Procedure CPT: Indications: R07.2 Precordial pain ICD-10 Codes: Patient History: Medications: Meds past 24 hrs: Pretest Chest Pain: STRESS TEST Lexiscan Protocol Exercise Duration (min:sec): 02:[address] Depressions (mm): Angina Score: Laboy Score: Resting HR (bpm): 63 Peak HR (bpm): 98 Resting BP (mmHg): 184 / 79 Peak BP (mmHg): 162 / 73 MPHR: 158 Target HR: 134 % MPHR: 62 METS: 1.0 Total Dose: Peak Dose: Atropine: Double Product: 34349 BP Response: Stress Termination: INFUSION COMPLETE Stress Symptoms: PATIENT FELT BETTER AFTER GIVEN Stress Summary: ECG ANALYSIS Resting ECG: Stress ECG: CONCLUSIONS Baseline EKG revealed a normal sinus rhythm with inferolateral nonspecific ST abnormality and voltage criteria for LVH. With Lexiscan administration the heart rate changed from 63-90 bpm and the blood pressure changed from 180/79-156/78. Patient had nausea and chest tightness requiring Aminophyllin. EKG remained inconclusive. By EKG criteria this is an inconclusive Lexiscan stress test because of resting EKG changes. The nuclear scan results will be reported by the radiologist. Dr. Charles Reyes MD (Electronically Signed) Final Date: 11 January 2024 11:05
--- NOTE | 2024-01-11 12:07 | NM ---
EXAMINATION TYPE: NM stress lexiscan cardiolite DATE OF EXAM: 01/11/2024 COMPARISON: NONE CLINICAL INDICATION: Female, 63 years old with history of R07.2 precordial pain; TECHNIQUE: After the intravenous administration of 9.03 mCi Tc 99m Sestamibi - Cardiolite resting SP ECT images acquired 70 minutes post injection. The patient received 0.4mg Lexiscan, 25.7 mCi Tc 99m Sestamibi - Stress images obtained [address] injection FINDINGS: Review of stress and rest SPECT images demonstrates no distinct perfusion abnormality. Gated analysi s shows normal wall motion with an estimated left ventricular ejection fraction of 63 %. IMPRESSION: No scintigraphic evidence for reversible ischemia. [facility], , 01/11/2024 12:05 PM
== END | disposition home or self-care (01) ==
LOC: RADNMMAIN 08:05
PROVIDERS: ATTEND Internal Medicine Interventional Cardiology
DX: R07.2 Precordial pain (principal)
CPT/HCPCS: 78452; 93017

== ENCOUNTER 2024-08-15 13:20 | Inpatient (IN) | payer OTHER ==
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
[2024-08-15 14:56] LABS: Basophils # (A) 0.04 10*3/uL (0.00-0.10); Basophils % (A) 0.5 %; HCT 35.9 % (37.2-46.3); HGB 12.3 g/dL (12.0-15.0); Lymphocytes # (A) 0.87 10*3/uL (0.90-5.00); Lymphocytes % (A) 10.1 %; MCH 31.4 pg (27.0-32.0); MCHC 34.3 g/dL (32.0-37.0); MCV 91.6 fL (80.0-97.0); Mean Platelet Volume 10.2 fL (9.5-12.2); Monocytes # (A) 0.55 10*3/uL (0.20-1.00); Monocytes % (A) 6.4 %; Neutrophils # (A) 7.16 10*3/uL (1.80-7.70); Neutrophils % (A) 82.8 %; Platelet Count 239 10*3/uL (140-440); RBC 3.92 10*6/uL (4.10-5.20); RDW 13.3 % (11.5-14.5); WBC 8.64 10*3/uL (4.50-10.00)
[2024-08-15 15:08] LABS: ALT 53 U/L (4-34); African American GFR (CKD) >90 (>60 ml/min/1.73 sqM); Anion Gap 7 mmol/L; Blood Urea Nitrogen 14 mg/dL (7-17); Calcium 9.2 mg/dL (8.4-10.2); Carbon Dioxide 22 mmol/L (22-30); Chloride 107 mmol/L (98-107); Glucose 111 mg/dL (74-99); Non-African American GFR(CKD) >90 (>60 ml/min/1.73 sqM); Sodium 136 mmol/L (137-145); Total Bilirubin 0.7 mg/dL (0.2-1.3); Total Protein 6.7 g/dL (6.3-8.2)
[2024-08-15 15:12] LABS: AST 97 U/L (14-36); Magnesium 1.8 mg/dL (1.6-2.3); Potassium 5.2 mmol/L (3.5-5.1)
[2024-08-15 15:13] LABS: Alkaline Phosphatase 85 U/L (38-126)
[2024-08-15 15:16] LABS: NT-Pro-B-Type Natriuretic Pept 4390 pg/mL
[2024-08-15 15:32] LABS: Influenza A Not Detected (Not Detectd); Influenza B Not Detected (Not Detectd); RSV Not Detected (Not Detectd)
[2024-08-15 15:36] LABS: INR 0.9 (<1.2); Prothrombin Time 10.3 sec (10.0-12.5)
[2024-08-15 15:37] LABS: Partial Thromboplastin Time 21.7 sec (22.0-30.0)
--- NOTE | 2024-08-15 16:01 | XR ---
EXAMINATION TYPE: XR chest 2V DATE OF EXAM: 08/15/2024 3:43 PM COMPARISON: 11/24/2023 CLINICAL INDICATION: Female, 64 years old with history of difficulty breathing, shortness of breath TECHNIQUE: AP and lateral views FINDINGS: Hyperinflation. Heart mildly enlarged. Interstitial/vascular prominence. No consolidation or pleural effusion. IMPRESSION: COPD, mild cardiomegaly, and possible mild pulmonary vascular congestion. [facility], , 08/15/2024 3:58 PM
[2024-08-15] MEDS ORDERED: HEPARIN SODIUM 1,000 UN/ML (10ML VL) IV PRN (16:03)
[2024-08-15] MEDS: ASPIRIN 81 MG PO STA (16:42)
[2024-08-15] MEDS: ONDANSETRON 4 MG/2 ML VIAL IVP STA (16:53)
[2024-08-15] MEDS: NITROGLYCERIN OINT 1 INCH/GM PACKET TOPICAL STA (16:55)
[2024-08-15] MEDS: MORPHINE SULFATE 4 MG/ML SYRINGE IV STA (16:58)
[2024-08-15] MEDS: HEPARIN SODIUM 1,000 UN/ML (10ML VL) IV ONE (17:06)
[2024-08-15] MEDS: HEPARIN SOD,PORK IN 0.45% NACL 25,000 UNIT in 0.45% NACL 1 250ML.BAG IV SCH (17:06)
[2024-08-15] MEDS ORDERED: NITROGLYCERIN SL TABS 0.4 MG TAB SUBLINGUAL PRN (18:01)
[2024-08-15] MEDS: FUROSEMIDE 10 MG/ML 4 ML VIAL IV STA (18:06)
[2024-08-15] MEDS: METOPROLOL TARTRATE 25 MG TAB PO SCH (18:07)
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
[2024-08-16] MEDS: methylPREDNISolone SOD SUCCI 40 MG/ML 1 ML VIAL IV SCH (01:17)
[2024-08-16] MEDS: ACETAMINOPHEN TAB 325 MG TAB PO PRN (01:36)
[2024-08-16] MEDS: IPRATROPIUM-ALBUTEROL 3 ML NEB INHALATION STA (03:02)
[2024-08-16 06:47] LABS: Basophils # (A) 0.02 10*3/uL (0.00-0.10); Basophils % (A) 0.2 %; HCT 34.2 % (37.2-46.3); HGB 11.5 g/dL (12.0-15.0); Lymphocytes # (A) 0.67 10*3/uL (0.90-5.00); Lymphocytes % (A) 7.6 %; MCH 31.3 pg (27.0-32.0); MCHC 33.6 g/dL (32.0-37.0); MCV 92.9 fL (80.0-97.0); Mean Platelet Volume 11.1 fL (9.5-12.2); Monocytes # (A) 0.11 10*3/uL (0.20-1.00); Monocytes % (A) 1.2 %; Neutrophils # (A) 8.02 10*3/uL (1.80-7.70); Neutrophils % (A) 90.8 %; Platelet Count 218 10*3/uL (140-440); RBC 3.68 10*6/uL (4.10-5.20); RDW 13.7 % (11.5-14.5); WBC 8.84 10*3/uL (4.50-10.00)
[2024-08-16 06:53] LABS: Prothrombin Time 11.3 sec (10.0-12.5)
[2024-08-16 07:14] LABS: African American GFR (CKD) >90 (>60 ml/min/1.73 sqM); Anion Gap 8 mmol/L; Blood Urea Nitrogen 21 mg/dL (7-17); Calcium 9.2 mg/dL (8.4-10.2); Carbon Dioxide 24 mmol/L (22-30); Chloride 102 mmol/L (98-107); Glucose 126 mg/dL (74-99); Non-African American GFR(CKD) 81 (>60 ml/min/1.73 sqM); Potassium 4.1 mmol/L (3.5-5.1); Sodium 134 mmol/L (137-145)
[2024-08-16] MEDS ORDERED: BUDESONIDE 1 MG/2 ML NEBU INHALATION SCH (08:00)
[2024-08-16] MEDS: FUROSEMIDE 20 MG TAB PO SCH (08:30)
[2024-08-16] MEDS: ATORVASTATIN 40 MG TAB PO SCH (08:30)
[2024-08-16] MEDS: ASPIRIN 81 MG PO SCH (08:31)
[2024-08-16] MEDS: LORATADINE 10 MG TAB PO SCH (08:31)
[2024-08-16] MEDS: MONTELUKAST 10 MG TAB PO SCH (08:31)
[2024-08-16] MEDS: Mirabegron [Myrbetriq] 50 MG Tab.Er.24h PO SCH (08:32)
[2024-08-16] MEDS ORDERED: ALPRAZolam 0.5 MG TAB PO PRN (08:39)
[2024-08-16] MEDS ORDERED: ASPIRIN 325 MG TAB PO STA (08:39)
[2024-08-16] MEDS ORDERED: ALPRAZolam 0.25 MG TAB PO PRN (08:39)
[2024-08-16] MEDS ORDERED: NITROGLYCERIN SL TABS 0.4 MG TAB SUBLINGUAL PRN (08:39)
[2024-08-16] MEDS ORDERED: ASPIRIN 325 MG TAB PO SCH (09:00)
[2024-08-16] MEDS: SODIUM CHLORIDE 0.9% 1,000 ML in EMPTY BAG 1 BAG IV SCH (09:34)
[2024-08-16] MEDS: ASPIRIN 81 MG PO STA (09:34)
[2024-08-16] MEDS: ATORVASTATIN 40 MG TAB PO STA (09:34)
[2024-08-16] MEDS: IPRATROPIUM-ALBUTEROL 3 ML NEB INHALATION SCH (09:37)
[2024-08-16] MEDS: TIOTROPIUM 2.5 MCG INHALER INHALATION SCH (09:37)
[2024-08-16] MEDS: SYMBICORT 160-4.5 MCG INHALER INHALATION SCH (09:37)
[2024-08-16] MEDS: ATORVASTATIN 80 MG TAB PO STA (09:47)
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
--- NOTE | 2024-08-16 13:24 | CA ---
Transthoracic Echo Report Name: Manuela Mclaughlin Age: 64 Gender: F : 1960 Exam Date: 08/16/2024 09:51 Exam Location: [place] [facility] Ht (in): 63 Wt (lb): 179 Ordering Physician: Veronica Alvarado Attending/Referring Phys: [id number], Jenny Money Position Officer Iris Saavedra RDCS Procedure CPT: Indications: nstemi Cardiac Hx: Technical Quality: Technically difficult study Contrast 1: Definity Total Dose (mL): 2 Contrast 2: Total Dose (mL): MEASUREMENTS (Male / Female) Normal Values 2D ECHO LV Diastolic Diameter PLAX 4.5 cm 4.2 - 5.9 / 3.9 - 5.3 cm LV Systolic Diameter PLAX 3.4 cm IVS Diastolic Thickness 1.1 cm 0.6 - 1.0 / 0.6 - 0.9 cm LVPW Diastolic Thickness 1.1 cm 0.6 - 1.0 / 0.6 - 0.9 cm LV Relative Wall Thickness 0.5 RV Internal Dim ED PLAX 3.7 cm LA Systolic Diameter LX 3.4 cm 3.0 - 4.0 / 2.7 - 3.8 cm LV Diastolic Volume MOD BP 103.2 cm??? 67 - 155 / 56 - 104 cm??? LV Systolic Volume MOD BP 49.3 cm??? - 58 / 19 - 49 cm??? LV Ejection Fraction MOD BP 52.3 % >= 55 % LV Cardiac Index MOD BP 2345.8 cm???/min???m??? LV Diastolic Volume MOD 4C 96.5 cm??? LV Systolic Volume MOD 4C 59.9 cm??? LV Ejection Fraction MOD 4C 37.9 % LV Cardiac Index MOD 4C 1592.6 cm???/min???m??? LV Diastolic Length 4C 7.9 cm LV Systolic Length 4C 6.8 cm LV Diastolic Volume MOD 2C 107.4 cm??? LV Systolic Volume MOD 2C 54.4 cm??? LV Ejection Fraction MOD 2C 49.4 % LV Cardiac Index MOD 2C 2306.8 cm???/min???m??? LV Diastolic Length 2C 8.1 cm LV Systolic Length 2C 6.5 cm LA Volume 57.4 cm??? 18 - 58 / 22 - 52 cm??? LA Volume Index 29.7 cm???/m??? 16 - 28 cm???/m??? M-MODE Aortic Root Diameter MM 3.5 cm AV Cusp Separation MM 2.2 cm DOPPLER AV Peak Velocity 122.8 cm/s AV Peak Gradient 6.0 mmHg AI Peak Velocity 349.2 cm/s AI Peak Gradient 48.8 mmHg AI Pressure Half Time 749.1 ms MV Area PHT 3.8 cm??? Mitral E Point Velocity 81.4 cm/s Mitral A Point Velocity 63.9 cm/s Mitral E to A Ratio 1.3 MV Deceleration Time 201.0 ms TR Peak Velocity 329.6 cm/s TR Peak Gradient 43.4 mmHg Right Ventricular Systolic Press 58.2 mmHg FINDINGS Left Ventricle Left ventricular ejection fraction is estimated at 40-45 %. Left ventricular cavity size normal. Mildly increased septal wall thickness. Mildly increased posterior wall thickness. Mildly decreased left ventricular ejection fraction. Apical septum hypokinesis Right Ventricle Moderate right ventricular dilatation. Severe pulmonary hypertension. Right ventricular systolic pressure estimated at 58 mm hg. Right Atrium Normal right atrial size. No right atrial thrombus or mass seen. Left Atrium Mildly increased left atrial volume. No left atrial thrombus or mass present. Mitral Valve Structurally normal mitral valve. Trace mitral regurgitation. No evidence for mitral valve prolapse. No mitral stenosis. Aortic Valve Trileaflet aortic valve. Thickened aortic valve without stenosis. Mild aortic regurgitation. Tricuspid Valve Structurally normal tricuspid valve. [id number] tricuspid regurgitation. Pulmonic Valve Structurally normal pulmonic valve. Mild pulmonic regurgitation. Pericardium No pericardial effusion. Aorta Normal size aortic root and proximal ascending aorta. CONCLUSIONS Impaired LV function with EF between 40 to 45% Severe pulmonary hypertension Dilated right ventricle Aortic sclerosis with mild aortic regurgitation Previewed by: Dr. Lionel Rooney MD (Electronically Signed) Final Date: 16 Aug 2024 13:23
[2024-08-16] MEDS: SODIUM CHLORIDE 0.9% 1,000 ML IV ONE (13:43)
[2024-08-16 13:56] VITALS: BMI 31.8
[2024-08-16] MEDS: MIDAZOLAM 2 MG/2 ML VIAL IVP ONE (14:02)
[2024-08-16] MEDS: LIDOCAINE 1% INJ 10MG/ML (20 ML MDV) SQ ONE (14:07)
[2024-08-16] MEDS: HEPARIN SODIUM 1,000 UN/ML (10ML VL) IVP ONE ×2 (14:09→14:14)
[2024-08-16] MEDS: VERAPAMIL SYRINGE (5 MG/10 ML) INTRAARTER ONE ×2 (14:09→14:14)
[2024-08-16] MEDS: IOPAMIDOL-370 100ML BTL INJ ONE (14:32)
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
[2024-08-16] MEDS: DOXYCYCLINE 100 MG TABLET PO SCH (20:23)
--- NOTE | 2024-08-16 22:41 | CC ---
CARDIAC CATHETERIZATION REPORT PROCEDURE: Left heart catheterization and coronary angiography. ANESTHESIA: Moderate conscious sedation time was 26 minutes. The patient was administered Versed. Oxygen saturation, hemolyzed, and EKG were monitored closely. CLINICAL INFORMATION: Ms. Manuela Mclaughlin is a 64-year-old lady with a history of smoking and COPD and she quit smoking about 3-4 weeks ago. She comes into the hospital with chest pressure, shortness of breath and was found to have elevated troponins and precordial T-wave inversion. She was advised cardiac cath after due discussion regarding risks, benefits, and options. PROCEDURE NOTE: Under local anesthesia and strict aseptic precautions, I attempted access into the right radial. I was able to get a good blood return, but I could not thread the wire. After multiple attempts, I abandoned and placed a TR band and went from the right femoral approach. With a micropuncture needle technique and ultrasound guidance, I gained access into the right femoral artery. Using standard Afsaneh catheters, I performed coronary angiography and the same right catheter was used to check LV pressures. LV-gram was not performed. Following the procedure, Angio-Seal device was used to secure hemostasis, and the patient tolerated the procedure well without complications. CARDIAC CATHETERIZATION FINDINGS: The left ventricular end-diastolic pressure was 15 mmHg. There was no gradient across the aortic valve. CORONARY ANGIOGRAPHY FINDINGS: Right Coronary Artery: This is a large dominant vessel. No significant disease, distally bifurcates into large PDA and PLV, both of which supply a sizable amount of myocardium. No significant disease. Very tortuous super dominant vessel. Left Main Coronary Artery: Short patent vessel. No significant disease. Bifurcates into LAD and circumflex. Left Anterior Descending Coronary Artery: Good caliber vessel, extends along the anterior wall, gives off septal and diagonal branches. No significant disease. Left Posterior Circumflex Coronary Artery: This comes off at a very unusual angle, nondominant vessel. Minor irregularities. No significant disease, very tortuous. FINAL IMPRESSION: This patient has no significant obstructive CAD. She has elevated filling pressures. No gradient. Right-dominant system. 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 RECOMMENDATIONS: I am recommending supportive care, antiplatelet agents, and the patient will be observed in the telemetry unit. Findings were discussed with the patient. No family was available. MMODL / IJN: [id number] /
[2024-08-17] MEDS ORDERED: HEPARIN SODIUM,PORCINE (1 ML) 2,500 UNIT in SODIUM CHLORIDE 0.9% 250 ML IRRIGATION PRN (07:00)
[2024-08-17] MEDS ORDERED: HEPARIN SODIUM,PORCINE 10,000 UNIT in SODIUM CHLORIDE 0.9% 1,000 ML IRRIGATION PRN (07:00)
[2024-08-17 09:08] LABS: HGB 11.2 g/dL (12.0-15.0); Lymphocytes # (A) 0.57 10*3/uL (0.90-5.00); MCH 31.8 pg (27.0-32.0); MCHC 33.9 g/dL (32.0-37.0); MCV 93.8 fL (80.0-97.0); Mean Platelet Volume 11.1 fL (9.5-12.2); Monocytes # (A) 0.29 10*3/uL (0.20-1.00); Monocytes % (A) 4.1 %; Neutrophils # (A) 6.24 10*3/uL (1.80-7.70); Neutrophils % (A) 87.5 %; Platelet Count 222 10*3/uL (140-440); RBC 3.52 10*6/uL (4.10-5.20); RDW 13.8 % (11.5-14.5); WBC 7.13 10*3/uL (4.50-10.00)
[2024-08-17 09:22] LABS: African American GFR (CKD) >90 (>60 ml/min/1.73 sqM); Anion Gap 7 mmol/L; Blood Urea Nitrogen 28 mg/dL (7-17); Calcium 9.3 mg/dL (8.4-10.2); Carbon Dioxide 25 mmol/L (22-30); Chloride 102 mmol/L (98-107); Glucose 123 mg/dL (74-99); Non-African American GFR(CKD) >90 (>60 ml/min/1.73 sqM); Potassium 4.4 mmol/L (3.5-5.1); Sodium 134 mmol/L (137-145)
[2024-08-17 14:30] LABS: Chol/HDL Ratio 2.84 Ratio; LDL Cholesterol,Calculated 70.1 mg/dL (0.0-131.0)
--- NOTE | 2024-08-17 15:00 | P.PN ---
Subjective Progress Note Date: 08/17/24 HISTORY OF PRESENT ILLNESS: This is a 64-year-old female with a past medical history significant for hy pertension, hyperlipidemia, COPD, and nicotine dependence. Patient follows in the office with Dr. Gill. We have been asked to see the patient in consultation for chest pain and CHF. Patient examined at the bedside. Patient presented to the hospital for chief complaint of shortness of breath and chest pain. She states she has been feeling short of breath for the past month. Additionally she reports having chest pain yesterday on the left side of her chest that radiated into her left shoulder blade. Patient was found to have elevated troponins and was started on IV heparin. She currently denies any chest pain or pressure at the time of examination DIAGNOSTICS: - EKG reveals sinus tachycardia with T wave inversions in lateral leads - Chest xray COPD, mild cardiomegaly, and possible mild pulmonary vascular congestion - Laboratory data: WBC 8.84. Hemoglobin 11.5. Platelet count 218. Sodium 134. Potassium 4.1. BUN 21. Creatinine 0.79. Troponin 0.859. 1.270. proBNP 4390. - Current home cardiac medications include metoprolol tartrate 25 mg twice a day, lisinopril 20 mg daily, Lasix 20 mg daily, Lipitor 40 mg daily, aspirin 81 mg daily. - Most recent echocardiogram obtained in December 2023 revealed ejection fraction 55%, mild MR and mild TR - Patient underwent Lexiscan stress test in December 2023 which was negative for ischemia - Cardiac catheterization history: Patient denies 08/17/2024 She underwent left heart catheterization 08/16/2024 that showed no significant CAD and likely Takotsubo's. Echocardiogram with EF 40-45%, RVSP 58. No issues with right radial or right groin sites. She does have some shortness of breath when walking to the bathroom and has wheezing on exam. No swelling. Denies any chest pain or pressure. PHYSICAL EXAM: VITAL SIGNS: Reviewed. GENERAL: Well-developed in no acute distress. HEENT: Head is normocephalic. Pupils are equal, round. Sclerae anicteric. Mucous membranes of the mouth are moist. Neck supple. No JVD or thyromegaly LUNGS: Respirations even and unlabored. Lungs with expiratory wheezing noted HEART: Regular rate and rhythm. S1 and S2 heard. ABDOMEN: Soft. Nondistended. Nontender. EXTREMITIES: Normal range of motion. No clubbing or cyanosis. Peripheral pulses intact. No lower extremity edema. Right radial and right groin sites with no hematoma, oozing, drainage. NEUROLOGIC: Awake and alert. Oriented x 3. ASSESSMENT: Non-STEMI Acute COPD exacerbation Hypertension Hyperlipidemia Nicotine dependence with recent cessation Obesity: BMI 31.9 PLAN: Left heart catheterization did not show any significant CAD, possible Takotsubo's. She is wheezing on exam and symptoms likely more lung related. Continue with current regimen. Okay to discharge home from a cardiac standpoint. Follow-up in office in 1 week. Nurse practitioner note has been reviewed by physician. Signing provider agrees with the documented findings, assessment, and plan of care documented by RESOURCE MANAGEMENT SPECIALIST as a scribe. Objective - Vital Signs Vital signs: Vital Signs Temp 97.9 F 08/17/24 04:00 Pulse 75 08/17/24 04:00 Resp 20 08/17/24 04:00 BP 124/77 08/17/24 04:00 Pulse Ox 97 08/17/24 04:00 FiO2 Intake & Output 08/16/24 08/17/24 08/17/24 18:59 06:59 18:59 Intake Total 260.197 600 Balance 260.197 600 Weight 81.6 kg 81.4 kg Intake: IV 100 Intake, IV Titration 160.197 Amount Heparin Sod,Pork in 0.45% 160.197 NaCl 25,000 unit In 0.45 % NaCl 1 250ml.bag @ 12 UNITS/KG/HR 9.798 mls/hr IV .Q24H INDIRA Rx#: [id number] Oral 0 600 Other: Voiding Method Bedside Commode Bedside Commode # Voids 1 1 - Labs CBC & Chem 7: 08/17/24 07:37 08/17/24 07:37 Labs: Abnormal Lab Results - Last 24 Hours (Table) 08/16/24 Range/Units 07:54 Troponin I 0.598 H* (0.000-0.034) ng/mL
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
[2024-08-17] MEDS: ENOXAPARIN 40 MG/0.4 ML SYRINGE SQ SCH (16:35)
[2024-08-17] MEDS: LOSARTAN 25 MG TAB PO SCH (20:51)
[2024-08-18 05:41] VITALS: RESP 19
[2024-08-18 08:02] VITALS: TEMP 97.7
[2024-08-18 12:33] VITALS: BP 157/84; PULSE 70
[2024-08-18] MEDS: lisinopriL 20 MG TAB PO SCH (12:33)
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
== END 2024-08-18 13:05 | disposition home or self-care (01) | DRG 192 ==
LOC: EC 13:20 → 3SCARD 16:47
PROVIDERS: ADMIT Hospitalist; ATTEND Hospitalist
PROC: B2111ZZ Fluoroscopy of Multiple Coronary Arteries using Low Osmolar Contrast (ICD-10-PCS; 2024-08-16)
PROC: 4A023N7 Measurement of Cardiac Sampling and Pressure, Left Heart, Percutaneous Approach (ICD-10-PCS; principal; 2024-08-16 14:00)
DX: I51.81 Takotsubo syndrome (principal); I21.4 Non-ST elevation (NSTEMI) myocardial infarction; J44.1 Chronic obstructive pulmonary disease with (acute) exacerbation; I27.29 Other secondary pulmonary hypertension; J20.9 Acute bronchitis, unspecified; J44.0 Chronic obstructive pulmonary disease with (acute) lower respiratory infection; I10 Essential (primary) hypertension; E78.5 Hyperlipidemia, unspecified; E66.9 Obesity, unspecified; R32 Unspecified urinary incontinence; Z79.82 Long term (current) use of aspirin; Z88.8 Allergy status to other drugs, medicaments and biological substances; Z68.31 Body mass index [BMI] 31.0-31.9, adult; Z87.891 Personal history of nicotine dependence; Z79.51 Long term (current) use of inhaled steroids; Z79.899 Other long term (current) drug therapy; Z90.710 Acquired absence of both cervix and uterus
CPT/HCPCS: 36415; 71046; 80048; 80053; 80061; 83605; 83735; 83880; 84484; 85025; 85610; 85730; 87636; 93005; 93306; 93458; 94640; 94660; 94760; 96365; 96366; 96375; 99291